=== PATIENT | male | born 1980 | race African-American/Black ===

== ENCOUNTER 2017-05-28 05:03 | Emergency (ER) | payer MEDICAID ==
[2015-12-04 08:30] VITALS: BMI 45.4
[~2017-05-28 05:03] MED LIST: CARDURA2 MG PO; PERCOCET 10/3251 TA1 PO; STOMACH MED; ZEBETA10 MG PO; ZESTRIL40 MG PO
[2017-05-28 05:31] LABS: BASOPHILS 0.2 % (0-2); EOSINOPHILS 5.3 % (0-7); HEMATOCRIT 43.1 % (42.0-54.0); HEMOGLOBIN 14.4 g/dL (13.5-17.5); LYMPHOCYTES 33.8 % (15-50); MCH 24.8 pg (26.0-34.0); MCHC 33.4 g/dL (31.0-37.0); MCV 74.2 fL (80.0-100.0); MEAN PLATELET VOLUME 9.8 fL (7.4-10.4); MONOCYTES 8.9 % (2-11); NEUTROPHILS 51.8 % (40-80); PLATELET COUNT 250 10x3/uL (130-400); RBC 5.81 10x6/uL (4.20-6.10); RDW 15.2 % (11.5-14.5); WBC 5.3 10x3/uL (4.8-10.8)
[2017-05-28 05:46] LABS: ALBUMIN 3.8 g/dL (3.4-5.0); ALKALINE PHOSPHATASE 90 U/L (46-116); ALT (SGPT) 29 U/L (10-68); BILIRUBIN - TOTAL 0.19 mg/dL (0.2-1.3); CALC OSMOLALITY 274 mosm/kg (275-300); CALCIUM 8.7 mg/dL (8.5-10.1); CARBON DIOXIDE 30.8 mmol/L (21.0-32.0); CHLORIDE - SERUM 98 mmol/L (98-107); CREATININE - SERUM 1.3 mg/dL (0.6-1.3); GLUCOSE 134 mg/dL (74-106); POTASSIUM - SERUM 3.2 mmol/L (3.5-5.1); PROTEIN - SERUM 8.2 g/dL (6.4-8.2); SODIUM 137 mmol/L (136-145); UREA NITROGEN 11 mg/dL (7-18); eGFR NON AFRICAN AMERICAN 66 mL/min (90-120)
[2017-05-28 05:46] LABS: APPEARANCE CLEAR (CLEAR); BILIRUBIN NEGATIVE (NEGATIVE); COLOR STRAW (YELLOW); GLUCOSE NEGATIVE (NEGATIVE); KETONE NEGATIVE (NEGATIVE); LEUKOCYTE ESTERASE NEGATIVE (NEGATIVE); NITRITE NEGATIVE (NEGATIVE); PROTEIN NEGATIVE (NEGATIVE); UROBILINOGEN NORMAL (NORMAL)
[2017-05-28 05:57] LABS: UDS - AMPHET NEGATIVE QUAL (NEGATIVE); UDS - BARB NEGATIVE QUAL (NEGATIVE); UDS - BENZO NEGATIVE QUAL (NEGATIVE); UDS - COCAINE POSITIVE QUAL (NEGATIVE); UDS - METH NEGATIVE QUAL (NEGATIVE); UDS - OPIATE POSITIVE QUAL (NEGATIVE); UDS - PCP NEGATIVE QUAL (NEGATIVE); UDS - THC NEGATIVE QUAL (NEGATIVE)
[2017-05-28 05:57] LABS: CHOL - HDL RATIO 5.8 ratio (2.3-4.9); CHOLESTEROL, TOTAL 156 mg/dL (0-200); CKMB 1.5 U/L (0.0-3.6); CREATINE KINASE 668 UL (21-232); HDL CHOLESTEROL 27 mg/dL (32-96); LDL CHOLESTEROL 81 mg/dL (0-100); TRIGLYCERIDE 242 mg/dL (30-200); TROPONIN-I < 0.017 ng/mL (0.000-0.060)
[2017-05-28 09:13] LABS: CREATINE KINASE 573 UL (21-232)
[2017-05-28 09:14] LABS: CKMB 1.3 U/L (0.0-3.6); TROPONIN-I < 0.017 ng/mL (0.000-0.060)
== END 2017-05-28 10:16 | disposition home or self-care (01) ==
LOC: D.ER 05:03
PROVIDERS: Emergency Medicine
DX: R07.9 Chest pain, unspecified (principal); I20.1 Angina pectoris with documented spasm; F19.10 Other psychoactive substance abuse, uncomplicated; F17.200 Nicotine dependence, unspecified, uncomplicated